=== PATIENT | female | born 1940 | race Caucasian/White ===

== ENCOUNTER 2017-10-28 06:31 | Emergency (ER) | END 2017-10-28 10:33 | disposition home or self-care (01) ==

== ENCOUNTER 2017-11-01 22:08 | Inpatient (IN) | END 2017-11-03 19:04 | DRG 299 ==

== ENCOUNTER 2017-11-18 09:07 | Emergency (ER) | END 2017-11-18 11:40 | disposition home or self-care (01) ==

== ENCOUNTER 2017-12-01 00:12 | Inpatient (IN) | END 2017-12-03 14:05 | disposition home or self-care (01) | DRG 872 ==

== ENCOUNTER 2017-12-07 16:48 | Inpatient (IN) | END 2017-12-26 04:42 | disposition EXP | DRG 871 ==